=== PATIENT | male | born 1970 | race Caucasian/White ===

== ENCOUNTER 2023-09-11 13:45 | Emergency (ER) | payer BC, SELFPAY ==
[2023-09-11 14:00] VITALS: BP 139/76; PULSE 96; RESP 18; TEMP 37.1; O2SAT 98
--- NOTE | 2023-09-11 15:06 | ED.DENTAL ---
HPI - Dental/Oral General Chief complaint: Dental/Oral Stated complaint: tooth pain Time Seen by Provider: 09/11/23 14:55 Source: patient, RN notes reviewed and old records reviewed Mode of arrival: ambulatory Limitations: no limitations History of Present Illness HPI Narrative: 53 year old male accompanied by spouse presents to express care with complaints of dental pain to the right upper molars #5 and # 3 with redness and swelling along gums with pain for the past 3 days. Patient reports that his face is swollen and has sensitivity to warm and cold with those teeth. He wears partial plate which does attach to those teeth. Patient has contacted his dentist and is here today for antibiotic and he will follow up with Dr Ho his dentist in his office in the next few days.. MD Complaint: tooth pain Location: Tooth # (3,5) Onset (ago): day(s) (3) Severity: moderate Severity scale (1-10): 5 Treatment prior to arrival: other (Ibuprofen and salt water gargles ) Related Data Home Medications Medication Instructions Recorded Confirmed aspirin 81 mg capsule 81 mg PO DAILY 09/11/23 09/11/23 atorvastatin 40 mg tablet 40 mg PO DAILY 09/11/23 09/11/23 lisinopril 20 mg tablet 20 mg PO DAILY 09/11/23 09/11/23 omeprazole 40 mg capsule,delayed 40 mg PO DAILY 09/11/23 09/11/23 release Allergies Allergy/AdvReac Type Severity Reaction Status Date / Time No Known Drug Allergies Allergy Verified 06/24/12 13:00 Review of Systems Review of Systems: CONSTITUTIONAL: Denies fever, chills, or sweats. ENT: Denies rhinorrhea, congestion, sore throat, or otalgia. Reports dental pain to #3 and #5 tooth with noted caries and redness and swelling of gums, right sided facial swelling CARDIOVASCULAR: Denies chest pain, palpitations, or edema. RESPIRATORY: Denies cough or dyspnea. SKIN: Denies rash or itching. MUSCULOSKELETAL: Denies myalgia. NEUROLOGIC: Denies headache All systems reviewed & are unremarkable except as noted in HPI and below PMFSH Past Medical History Medical History (Updated 09/13/23 @ 15:24 by Maribel Dill NP) Barretts esophagus Hyperlipidemia Hypertension Social History Social History (Updated 09/13/23 @ 15:25 by Maribel Dill NP) Smoking packs per day: 0.75 Smoking cigarettes per day: 15.0 Years smoked: 35 Smoking pack-years: 26.25 Smoking status: Current every day smoker Tobacco type: cigarettes Alcohol intake: current Alcohol use details: social Substance use type: does not use Living arrangements: with family Gender identity (if verbalized by the patient): Male Comments At time of signature, agree with nursing past medical, surgical, social and family history. There is no relevant family history pertinent to the presenting complaint Exam Narrative: GENERAL: Well-appearing, well-nourished, and in no acute distress. HEAD: Normocephalic, atraumatic. EYES: PERRLA and EOMI. ENT: Nares clear, no rhinorrhea or epistaxis. Mucous membranes moist. Missing teeth, caries, with redness and swelling of gums above #3 and #5 tooth with some right sided facial swelling. no trismus or Jamin angina NECK: Supple.No lymphadenopathy CHEST: Clear to auscultation. No respiratory distress.SAO2 98%on room air HEART: Regular rate and rhythm. No murmur heard. Normal peripheral pulses. SKIN: Warm, dry, no rash. NEURO: No focal deficits. Alert and oriented x3. Course Course Emergency Course: Patient is aware of diagnosis, understands and agrees to treatment plan. Anticipatory guidance given. Patient agrees to follow-up as directed and is aware of reasons to seek care at the emergency department. Portions of this record may have been created with voice recognition software Level of Care: Express Care Visit Vital Signs Vital signs: Vital Signs Temperature 37.1 C 09/11/23 14:00 Pulse Rate 96 09/11/23 14:00 Respiratory Rate 18 09/11/23 14:00 Blood Pressure 139/76
== END 2023-09-11 15:10 | disposition home or self-care (01) ==
PROVIDERS: Emergency Provider Registered Nurse; PCP Hospitalist
DX: K04.7 Periapical abscess without sinus (principal); F17.210 Nicotine dependence, cigarettes, uncomplicated; K22.70 Barrett's esophagus without dysplasia; E78.5 Hyperlipidemia, unspecified; I10 Essential (primary) hypertension; Z79.82 Long term (current) use of aspirin
CPT/HCPCS: 99213; G0463